=== PATIENT | male | born 1980 | race Caucasian/White ===

== ENCOUNTER 2019-01-05 06:22 | Day surgery (SDC) | payer BC ==
[2019-01-05] MEDS ORDERED: LIDOCAINE 100 MG SYRINGE (08:45)
[2019-01-05] MEDS ORDERED: FENTAnyl 50 MCG/ML VIAL (08:45)
[2019-01-05] MEDS ORDERED: PROPOFOL 40 ML (08:45)
== END 2019-01-05 11:36 | disposition home or self-care (01) ==
LOC: GIL 06:22
DX: K25.9 Gastric ulcer, unspecified as acute or chronic, without hemorrhage or perforation (principal); K63.89 Other specified diseases of intestine; K64.8 Other hemorrhoids
CPT/HCPCS: 43239; 88305; 88313